=== PATIENT | male | born 1940 | race Caucasian/White ===

== ENCOUNTER 2017-11-16 11:57 | Emergency (ER) | payer MEDICARE, OTHER ==
[2017-11-16 12:24] LABS: #Eosinphils 0.2 thou/uL (0.0-0.7); #Lymphocytes 2.8 thou/uL (1.20-3.40); #Monocytes 0.6 thou/uL (0.11-0.59); #Neutrophils 3.8 thou/uL (1.40-6.50); %Basophils 0.2 % (0.0-1.0); %Eosinophils 2.1 % (0.0-10.0); %Lymphocytes 38.4 % (21.0-51.0); %Monocytes 8.3 % (0.0-10.0); Mean Corpuscular HGB CONC 33.1 g/dL (32.0-36.0); Mean Corpuscular Hemoglobin 29.9 pg (27.0-31.0); Mean Corpuscular Volume 90.1 fl (80.0-94.0); Mean Platelet Volume 7.7 fL (7.4-10.4); Platelet Count 197 thou/uL (130-400); RBC Distribution Width 12.8 % (11.5-14.5); Red Blood Cell (RBC) Count 5.03 mill/uL (4.70-6.10); White Blood Cell (WBC) Count 7.4 thou/uL (4.8-10.8)
--- NOTE | 2017-11-16 12:29 | CT ---
CT BRAIN WITHOUT CONTRAST: HISTORY: Stroke alert. Slurred speech. Weakness. COMPARISON: None. FINDINGS: There is a hypodensity of the left and right centrum semiovale, likely chronic microvascular changes. Old infarct, left caudate head. Hypodensities present at the right caudate head. No hemorrhage. No midline shift. No mass effect. Cavum septum pellucidum and cavum vergae. The calvarium is intact. The paranasal sinuses and mastoids are clear. IMPRESSION: Likely all chronic changes without definite large volume infarction. No hemorrhage. Dr. Sutherland notified at 12:08 p.m. CODE CR POS: [facility]
[2017-11-16 12:30] LABS: PTT 26.4 SEC (22.9-36.1); Prothrombin Time 13.2 SEC (12.0-14.7)
[2017-11-16 12:37] LABS: ALT (SGPT) 18 U/L (8-55); AST (SGOT) 23 U/L (5-34); Albumin 4.6 g/dL (3.4-4.8); Alkaline Phosphatase 62 U/L (40-150); Anion Gap 15 mmol/L (10-20); BUN (Urea Nitrogen) 26 mg/dL (8.4-25.7); Bilirubin, Total 0.9 mg/dL (0.2-1.2); CK (CPK) 86 U/L (30-200); Calc. Creatinine Clearance 0 mL/min (70-130); Calcium 9.8 mg/dL (7.8-10.44); Carbon Dioxide 25 mmol/L (23-31); Chloride 104 mmol/L (98-107); Estimated GFR-MDRD 62; Globulin 2.7 g/dL (2.4-3.5); Glucose 127 mg/dL (83-110); Potassium 4.7 mmol/L (3.5-5.1); Protein, Total 7.3 g/dL (5.8-8.1); Sodium 139 mmol/L (136-145)
[2017-11-16 12:41] LABS: CKMB 1.3 ng/mL (0-6.6); Troponin I Less than 0.010 ng/mL (< 0.028)
--- NOTE | 2017-11-16 13:21 | CT ---
CT ANGIOGRAM HEAD WITH CONTRAST CT ANGIOGRAM NECK WITH CONTRAST: Date: 11/16/17 HISTORY: Weakness. COMPARISON: CT brain from same date. FINDINGS: CT angiogram of head and neck performed after the intravenous administration of contrast. 3D renderin g provided. Mild degenerative changes of cervical spine. There is some air trapping in the lung apice s. There is some chronic scarring in the right upper lobe. Thyroid is unremarkable. No cervical adenopathy. Globes are normal. Right Side: Normal takeoff of the right vertebral artery. The vertebral arteries are codominant. No significant s tenosis. Basilar artery is patent. Common carotid artery is normal. Using NASCET criteria, no hemodynamically significant stenosis of th e internal carotid artery. Left Side: Origin of the left vertebral artery is normal. Vertebral arteries are codominant. No stenosis. Common carotid origin is normal. No stenosis. Using NASCET criteria, no hemodynamically significant s tenosis of internal carotid artery. No stenosis, thrombosis, nor aneurysm formation in [place]. [place] is widely paten t. Dural venous sinuses are patent. IMPRESSION: No stenosis, thrombosis, or aneurysm formation. No significant narrowing of the arteries of the neck or head. POS: [facility]
[2017-11-16] MEDS ORDERED: ISOVUE-370 76%-LOCM 1 ML ONE (16:08)
[2017-11-16] MEDS ORDERED: Acetaminophen 500 MG TAB ONE (17:10)
[2017-11-17 15:58] LABS: Base Excess-Venous 0.6 mmol/L (0 (+/- 2.5)); Bicarbonate (HCO3v) 25.9 mmol/L (1.0-85.0); CO2 Tension (PvCO2) 42.8 mmHg (41.0-51.0); Calcium, Ionized 1.03 mmol/L (1.12-1.32); Hemoglobin - Calc 15.2 g/dL (12.0-18.0); Lactate 2.67 mmol/L (0.50-2.20); O2 Tension (PvO2) 60.1 mmHg (35.0-45.0); T. Carbon Dioxide 27.2 mmol/L (1.0-85.0); vO2 Saturation-calc 90.3 % (94-98)
--- NOTE | 2018-01-15 16:12 | EKG ---
Test Reason : Blood Pressure : / mmHG Vent. Rate : 075 BPM Atrial Rate : 075 BPM P-R Int : 162 ms QRS Dur : 112 ms QT Int : 416 ms P-R-T Axes : 044 -03 058 degrees QTc Int : 464 ms Sinus rhythm with frequent Premature ventricular complexes Nonspecific ST abnormality Abnormal ECG Confirmed by JUAN THURSTON, KAY ([id number]), editorial specialist SHON VALLE ([id number]) on 01/15/2018 4:11:31 PM Referred By: Confirmed By:KAY MARTINEZ MD
== END 2017-11-16 18:47 | disposition short-term general hospital (02) ==
LOC: ERS 11:57
DX: I63.9 Cerebral infarction, unspecified (principal); I10 Essential (primary) hypertension; J44.9 Chronic obstructive pulmonary disease, unspecified; Z87.442 Personal history of urinary calculi; Z79.82 Long term (current) use of aspirin; Z79.84 Long term (current) use of oral hypoglycemic drugs; Z79.899 Other long term (current) drug therapy
CPT/HCPCS: 36416; 70450; 70496; 70498; 80053; 82330; 82435; 82550; 82553; 82565; 82803; 82947; 83605; 84132; 84295; 84484; 85014; 85025; 85610; 85730; 93005; 94760

== ENCOUNTER 2024-09-02 01:16 | Inpatient (IN) | payer MEDICARE ==
[2024-09-02 01:47] LABS: #Basophils 0.04 10x3/uL (0.0-0.2); #Eosinophils Less than 0.03 10x3/uL (0.0-0.7); %Basophils 0.2 % (0.0-1.0); %Lymphocytes 14.5 % (21.0-51.0); %Monocytes 8.6 % (0.0-10.0); %Neutrophils 76.2 % (42.0-75.0); Hematocrit 41.3 % (42.0-52.0); Hemoglobin 13.5 g/dL (14.0-18.0); Mean Corpuscular HGB CONC 32.7 g/dL (32.0-36.0); Mean Corpuscular Volume 91.8 fL (78.0-98.0); Mean Platelet Volume 10.1 fL (7.4-10.4); Platelet Count 191 10x3/uL (130-400); RBC Distribution Width 13.9 % (11.5-14.5)
[2024-09-02 02:04] LABS: ALT (SGPT) 35 U/L (Less than 45); AST (SGOT) 29 U/L (11-34); Albumin 3.6 g/dL (3.1-4.5); Alkaline Phosphatase 61 U/L (40-110); Anion Gap 17 mmol/L (10-20); BUN (Urea Nitrogen) 20 mg/dL (8.4-25.7); Bilirubin, Total 1.2 mg/dL (0.3-1.2); Calc. Creatinine Clearance 0 mL/min (70-130); Calcium 8.6 mg/dL (7.8-10.44); Carbon Dioxide 20 mmol/L (23-31); Chloride 104 mmol/L (98-107); Estimated GFR 86; Globulin 3.1 g/dL (2.4-3.5); Glucose 297 mg/dL (83-110); Potassium 4.2 mmol/L (3.5-5.1); Protein, Total 6.7 g/dL (5.8-8.1); Sodium 137 mmol/L (136-145)
[2024-09-02 02:07] LABS: Troponin I 0.021 ng/mL (< 0.028)
[2024-09-02] MEDS ORDERED: Sodium Chloride 0.9% 100 ML ONE (03:03)
[2024-09-02] MEDS ORDERED: cefTRIAXone (ROCEPHIN) 1 GM VIAL ONE (03:03)
[2024-09-02] MEDS ORDERED: Acetaminophen 500 MG TAB ONE (03:35)
[2024-09-02 06:54] LABS: Bacteria/HPF 3+ HPF (None Seen); Bilirubin Negative (Negative); Blood, Urine 1+ (Negative); CAUTI Indications for Culture Dysuria,urgency,freq; Clarity Turbid (Clear); Glucose, Urine (Dipstick) Greater than 1000 mg/dL (Negative); Ketone, Urine Trace mg/dL (Negative); Leukocyte 500 Leu/uL (Negative); Nitrite Negative (Negative); Protein, Urine (Dipstick) 50 mg/dL (Neg-Trace); Specific Gravity, Urine 1.025 (1.002-1.036); Squamous Epithelial 0-3 HPF (0-3); Urobilinogen Normal mg/dL (Less than 2); WBC/HPF Greater than 50 HPF (0-3); pH, Urine 5.5 (5.0-9.0)
[2024-09-02 06:55] LABS: Urine Culture Reflex Yes Yes
[2024-09-02] MEDS ORDERED: Acetaminophen 650 MG Suppository PR PRN (08:10)
[2024-09-02] MEDS ORDERED: Electrolyte Replacement Protocol 1 EACH FS ONE (08:11)
[2024-09-02] MEDS ORDERED: Ipratropium/Albuterol 3 ML NEB NEB PRN (08:22)
[2024-09-02] MEDS ORDERED: Senokot S 8.6-50 MG TAB PO PRN (08:29)
[2024-09-02] MEDS ORDERED: Glucagon 1 MG/ML KIT IM PRN (08:30)
[2024-09-02] MEDS ORDERED: Electrolyte Replacement Protocol FS PRN (08:30)
[2024-09-02] MEDS ORDERED: Dextrose 5% in Water 1,000 ML IV PRN (08:30)
[2024-09-02] MEDS ORDERED: Dextrose 50% Abboject 50 ML SYRINGE SLOW IVP PRN (08:30)
[2024-09-02 08:39] LABS: Hemoglobin A1c 6.5 % (4.0-6.0)
[2024-09-02] MEDS: Vancomycin (BATCH) 2 GM in Premix 1 BAG IVPB SCH (10:44)
[2024-09-02] MEDS: Ipratropium/Albuterol 3 ML NEB NEB SCH (10:45)
[2024-09-02] MEDS: Polyethylene Glycol 3350 17 GM Packet PO SCH (10:59)
[2024-09-02] MEDS: Enoxaparin 40 MG (0.4 mL) SYRINGE SC SCH (10:59)
[2024-09-02] MEDS: Famotidine 20 MG TAB PO SCH (10:59)
[2024-09-02] MEDS: Mineral Oil ENEMA PR SCH (11:00)
[2024-09-02] MEDS: Azithromycin 500 MG in Sodium Chloride 0.9% 250 ML 250 ML IVPB SCH (11:00)
[2024-09-02] MEDS: methylPREDNISolone Sod Succ 40 MG VIAL IVP SCH (11:02)
[2024-09-02] MEDS ORDERED: Iopamidol-370 76% 500 ML MDV (1 ML CHARGE) ONE (13:44)
[2024-09-02] MEDS: glipiZIDE 5 MG TAB PO SCH (15:40)
[2024-09-02] MEDS: Carbidopa/Levodopa 10-100 mg Tablet PO SCH (15:40)
[2024-09-02 15:47] VITALS: BMI 35.9
[2024-09-02] MEDS: Mometasone 100 MCG HFA INHALER (RT USE) INH SCH (18:57)
[2024-09-02] MEDS: hydrALAZINE 25 MG TAB PO SCH (22:01)
[2024-09-02] MEDS: Apixaban 5 MG TAB PO SCH (22:02)
[2024-09-03] MEDS: hydrALAZINE 20 MG/ML VIAL SLOW IVP PRN (00:32)
[2024-09-03 04:45] LABS: #Basophils Less than 0.03 10x3/uL (0.0-0.2); #Eosinophils Less than 0.03 10x3/uL (0.0-0.7); %Basophils 0.1 % (0.0-1.0); %Lymphocytes 5.5 % (21.0-51.0); %Monocytes 1.1 % (0.0-10.0); %Neutrophils 92.2 % (42.0-75.0); Hematocrit 39.6 % (42.0-52.0); Mean Corpuscular HGB CONC 32.8 g/dL (32.0-36.0); Mean Corpuscular Hemoglobin 30.4 pg (27.0-31.0); Mean Corpuscular Volume 92.7 fL (78.0-98.0); Mean Platelet Volume 10.2 fL (7.4-10.4); Platelet Count 183 10x3/uL (130-400); RBC Distribution Width 13.7 % (11.5-14.5); Red Blood Cell (RBC) Count 4.27 mill/uL (4.70-6.10)
[2024-09-03 04:58] LABS: Anion Gap 14 mmol/L (10-20); BUN (Urea Nitrogen) 18 mg/dL (8.4-25.7); Calc. Creatinine Clearance 125 mL/min (70-130); Calcium 8.6 mg/dL (7.8-10.44); Carbon Dioxide 22 mmol/L (23-31); Chloride 104 mmol/L (98-107); Estimated GFR 93; Glucose 280 mg/dL (83-110); Potassium 4.1 mmol/L (3.5-5.1); Sodium 136 mmol/L (136-145)
[2024-09-03] MEDS: cefTRIAXone\\ROCEPHIN 1 GM in Sodium Chloride 0.9% 100 ML IVPB SCH (05:12)
[2024-09-03] MEDS ORDERED: Ipratropium/Albuterol 3 ML NEB NEB SCH (07:00)
[2024-09-03] MEDS: FLUoxetine HCl 20 MG CAP PO SCH (09:39)
[2024-09-03] MEDS: Allopurinol 300 MG TAB PO SCH (09:40)
[2024-09-03] MEDS: Isosorbide Mononitrate 30 MG ER.TAB PO SCH (09:40)
[2024-09-03] MEDS: Loratadine 10 MG TAB PO SCH (09:40)
[2024-09-03] MEDS: Insulin Lispro 100 UNIT/ML 10 ML VIAL SC PRN (12:38)
[2024-09-03] MEDS: Ipratropium/Albuterol 3 ML NEB NEB SCH (13:20)
[2024-09-04 05:41] LABS: #Basophils Less than 0.03 10x3/uL (0.0-0.2); #Eosinophils Less than 0.03 10x3/uL (0.0-0.7); %Basophils 0.1 % (0.0-1.0); %Lymphocytes 5.9 % (21.0-51.0); %Monocytes 3.1 % (0.0-10.0); %Neutrophils 90.3 % (42.0-75.0); Hematocrit 39.5 % (42.0-52.0); Mean Corpuscular HGB CONC 32.9 g/dL (32.0-36.0); Mean Corpuscular Hemoglobin 29.9 pg (27.0-31.0); Mean Corpuscular Volume 90.8 fL (78.0-98.0); Mean Platelet Volume 10.5 fL (7.4-10.4); Platelet Count 213 10x3/uL (130-400); RBC Distribution Width 13.4 % (11.5-14.5); Red Blood Cell (RBC) Count 4.35 mill/uL (4.70-6.10)
[2024-09-04 06:22] LABS: Anion Gap 13 mmol/L (10-20); BUN (Urea Nitrogen) 25 mg/dL (8.4-25.7); Calc. Creatinine Clearance 114 mL/min (70-130); Calcium 8.6 mg/dL (7.8-10.44); Carbon Dioxide 22 mmol/L (23-31); Chloride 101 mmol/L (98-107); Estimated GFR 90; Glucose 317 mg/dL (83-110); Potassium 4.1 mmol/L (3.5-5.1); Sodium 132 mmol/L (136-145)
[2024-09-04] MEDS: Isosorbide Mononitrate 60 MG ER.TAB PO SCH (10:55)
[2024-09-04] MEDS: Insulin Glargine 30 UNITS/0.3 ML VIAL SC SCH (21:03)
[2024-09-05 04:20] LABS: #Basophils 0.03 10x3/uL (0.0-0.2); #Eosinophils Less than 0.03 10x3/uL (0.0-0.7); %Basophils 0.3 % (0.0-1.0); %Lymphocytes 9.4 % (21.0-51.0); %Neutrophils 81.5 % (42.0-75.0); Hematocrit 40.9 % (42.0-52.0); Hemoglobin 13.4 g/dL (14.0-18.0); Mean Corpuscular HGB CONC 32.8 g/dL (32.0-36.0); Mean Corpuscular Volume 91.5 fL (78.0-98.0); Mean Platelet Volume 10.4 fL (7.4-10.4); Platelet Count 234 10x3/uL (130-400); RBC Distribution Width 13.6 % (11.5-14.5); Red Blood Cell (RBC) Count 4.47 mill/uL (4.70-6.10)
[2024-09-05 04:37] LABS: Anion Gap 14 mmol/L (10-20); BUN (Urea Nitrogen) 26 mg/dL (8.4-25.7); Calc. Creatinine Clearance 107 mL/min (70-130); Carbon Dioxide 24 mmol/L (23-31); Chloride 100 mmol/L (98-107); Potassium 4.1 mmol/L (3.5-5.1); Sodium 134 mmol/L (136-145)
[2024-09-05 04:38] LABS: Calcium 8.5 mg/dL (7.8-10.44); Estimated GFR 88; Glucose 251 mg/dL (83-110)
[2024-09-05] MEDS: predniSONE 20 MG TAB PO SCH (09:03)
[2024-09-05] MEDS: Cefdinir 300 MG CAP PO SCH (20:33)
[2024-09-05] MEDS: Ketorolac Tromethamine 30 MG (1 mL) VIAL IVP SCH (20:33)
[2024-09-05] MEDS: Dicyclomine 10 MG CAP PO SCH (20:34)
[2024-09-05] MEDS: Lactulose 20 GM (30 mL) UDCUP PO SCH (20:34)
[2024-09-06 04:25] LABS: #Basophils 0.03 10x3/uL (0.0-0.2); #Eosinophils Less than 0.03 10x3/uL (0.0-0.7); %Basophils 0.3 % (0.0-1.0); %Eosinophils 0.1 % (0.0-10.0); %Lymphocytes 21.3 % (21.0-51.0); %Monocytes 12.3 % (0.0-10.0); Hematocrit 42.3 % (42.0-52.0); Mean Corpuscular HGB CONC 33.1 g/dL (32.0-36.0); Mean Corpuscular Hemoglobin 30.4 pg (27.0-31.0); Mean Corpuscular Volume 91.8 fL (78.0-98.0); Mean Platelet Volume 10.2 fL (7.4-10.4); Platelet Count 218 10x3/uL (130-400); RBC Distribution Width 13.8 % (11.5-14.5); Red Blood Cell (RBC) Count 4.61 mill/uL (4.70-6.10)
[2024-09-06 04:42] LABS: ALT (SGPT) 45 U/L (Less than 45); AST (SGOT) 45 U/L (11-34); Alkaline Phosphatase 55 U/L (40-110); Anion Gap 15 mmol/L (10-20); BUN (Urea Nitrogen) 27 mg/dL (8.4-25.7); Bilirubin, Total 0.7 mg/dL (0.3-1.2); Calc. Creatinine Clearance 95 mL/min (70-130); Calcium 8.7 mg/dL (7.8-10.44); Carbon Dioxide 23 mmol/L (23-31); Chloride 103 mmol/L (98-107); Estimated GFR 85; Globulin 3.3 g/dL (2.4-3.5); Glucose 183 mg/dL (83-110); Potassium 3.9 mmol/L (3.5-5.1); Protein, Total 6.3 g/dL (5.8-8.1); Sodium 137 mmol/L (136-145)
[2024-09-06] MEDS ORDERED: Ketorolac Tromethamine 30 MG (1 mL) VIAL IVP PRN (10:05)
[2024-09-06] MEDS: Losartan 25 MG TAB PO SCH (10:37)
[2024-09-07] MEDS: Docusate 100 MG CAP PO SCH (09:02)
[2024-09-07] MEDS: Losartan 25 MG TAB PO SCH (09:04)
[2024-09-07] MEDS ORDERED: MAGIC MOUTHWASH 10 ML UDCUP SSW SCH (10:45)
[2024-09-07] MEDS: Dicyclomine 10 MG CAP PO PRN (11:55)
[2024-09-07] MEDS: MAGIC MOUTHWASH 10 ML, Compounding Fee 1 SSW SCH (12:39)
[2024-09-07] MEDS: MAGIC MOUTH WASH W/NYSTATIN SUSP 10 ML UDCUP SSW PRN (18:24)
[2024-09-08] MEDS: Tamsulosin HCl 0.4 MG CAP PO SCH (13:37)
[2024-09-08] MEDS: Insulin Lispro 100 UNIT/ML 10 ML VIAL SC PRN (21:08)
[2024-09-08 22:27] VITALS: BMI 35.9
[2024-09-09 06:11] LABS: Hematocrit 37.5 % (42.0-52.0); Hemoglobin 12.2 g/dL (14.0-18.0); Mean Corpuscular HGB CONC 32.5 g/dL (32.0-36.0); Mean Corpuscular Hemoglobin 30.3 pg (27.0-31.0); Mean Corpuscular Volume 93.1 fL (78.0-98.0); Mean Platelet Volume 10.3 fL (7.4-10.4); Platelet Count 198 10x3/uL (130-400); RBC Distribution Width 14.2 % (11.5-14.5); Red Blood Cell (RBC) Count 4.03 mill/uL (4.70-6.10)
[2024-09-09 06:29] LABS: Anion Gap 14 mmol/L (10-20); BUN (Urea Nitrogen) 27 mg/dL (8.4-25.7); Calc. Creatinine Clearance 83 mL/min (70-130); Calcium 8.2 mg/dL (7.8-10.44); Carbon Dioxide 24 mmol/L (23-31); Chloride 105 mmol/L (98-107); Estimated GFR 73; Glucose 93 mg/dL (83-110); Potassium 4.2 mmol/L (3.5-5.1); Sodium 139 mmol/L (136-145)
[2024-09-09] MEDS: Tamsulosin HCl 0.4 MG CAP PO SCH (08:33)
[2024-09-09] MEDS: Nystatin 500,000 UNITS/5 ML UDCUP SSW SCH ×2 (12:52)
[2024-09-09] MEDS: Acetaminophen 325 MG TAB PO PRN (21:12)
[2024-09-10 06:02] LABS: Hematocrit 36.8 % (42.0-52.0); Hemoglobin 11.8 g/dL (14.0-18.0); Mean Corpuscular HGB CONC 32.1 g/dL (32.0-36.0); Mean Corpuscular Hemoglobin 29.9 pg (27.0-31.0); Mean Corpuscular Volume 93.4 fL (78.0-98.0); Mean Platelet Volume 10.4 fL (7.4-10.4); Platelet Count 200 10x3/uL (130-400); RBC Distribution Width 14.1 % (11.5-14.5); Red Blood Cell (RBC) Count 3.94 mill/uL (4.70-6.10)
[2024-09-10 06:36] LABS: Anion Gap 13 mmol/L (10-20); BUN (Urea Nitrogen) 20 mg/dL (8.4-25.7); Calc. Creatinine Clearance 100 mL/min (70-130); Calcium 8.2 mg/dL (7.8-10.44); Carbon Dioxide 24 mmol/L (23-31); Chloride 103 mmol/L (98-107); Estimated GFR 87; Glucose 105 mg/dL (83-110); Potassium 4.1 mmol/L (3.5-5.1); Sodium 136 mmol/L (136-145)
[2024-09-11 07:11] LABS: Hematocrit 43.3 % (42.0-52.0); Hemoglobin 14.2 g/dL (14.0-18.0); Mean Corpuscular HGB CONC 32.8 g/dL (32.0-36.0); Mean Corpuscular Hemoglobin 30.1 pg (27.0-31.0); Mean Corpuscular Volume 91.9 fL (78.0-98.0); Mean Platelet Volume 10.3 fL (7.4-10.4); Platelet Count 213 10x3/uL (130-400); RBC Distribution Width 14.1 % (11.5-14.5); Red Blood Cell (RBC) Count 4.71 mill/uL (4.70-6.10)
[2024-09-12 13:26] VITALS: BP 117/69; TEMP 97.3
== END 2024-09-12 13:20 | disposition home or self-care (01) | DRG 871 ==
LOC: ERS 01:16 → 2NO 08:52 → MSONC 09-06 22:27
PROVIDERS: ADMIT Internal Medicine; ATTEND Internal Medicine
PROC: 0T9B70Z Drainage of Bladder with Drainage Device, Via Natural or Artificial Opening (ICD-10-PCS; principal; 2024-09-02)
PROC: 3E03329 Introduction of Other Anti-infective into Peripheral Vein, Percutaneous Approach (ICD-10-PCS; 2024-09-02)
DX: A41.51 Sepsis due to Escherichia coli [E. coli] (principal); J18.9 Pneumonia, unspecified organism; J96.11 Chronic respiratory failure with hypoxia; N39.0 Urinary tract infection, site not specified; J44.1 Chronic obstructive pulmonary disease with (acute) exacerbation; J44.0 Chronic obstructive pulmonary disease with (acute) lower respiratory infection; I25.10 Atherosclerotic heart disease of native coronary artery without angina pectoris; T42.8X5A Adverse effect of antiparkinsonism drugs and other central muscle-tone depressants, initial encounter; G20.A1 Parkinson's disease without dyskinesia, without mention of fluctuations; R31.0 Gross hematuria; I10 Essential (primary) hypertension; K59.09 Other constipation; E11.9 Type 2 diabetes mellitus without complications; G89.29 Other chronic pain; Z90.49 Acquired absence of other specified parts of digestive tract; Z95.1 Presence of aortocoronary bypass graft; Z79.899 Other long term (current) drug therapy; Z99.81 Dependence on supplemental oxygen
CPT/HCPCS: 36415; 36416; 71045; 74177; 80048; 80053; 81001; 83036; 83605; 83880; 84145; 84484; 85025; 85027; 85379; 86141; 87040; 87077; 87086; 87186; 93005; 94640; 94664; 96365; 96366; 96368; J0360; J0456; J0696; J1650; J1815; J1885; J2919; J3370; J7050; J7512; J7620; Q9967